=== PATIENT | male | born 2005 | race Caucasian/White ===

== ENCOUNTER 2023-03-19 17:20 | Emergency (ER) | payer OTHER ==
[~2023-03-19] VITALS: Ht 175.3 cm; Wt 68.0 kg
[2023-03-19 17:20] VITALS: BP_SYST 140; PULSE 110; RESP 19; TEMP 98.2; O2SAT 94
[2023-03-19] MEDS ORDERED: KETOROLAC TROMETHAMINE 30 MG VIAL IVP ONE (18:00)
[2023-03-19] MEDS ORDERED: ONDANSETRON HCL 4 MG/2 ML VIAL IVP ONE (18:00)
[2023-03-19] MEDS ORDERED: NACL 0.9% 1,000 ML IV ONE ×2 (18:00→19:15)
[2023-03-19 18:34] LABS: BASOPHILS % (AUTO) 0.1 % (0.0-2.0); EOSINOPHILS # (AUTO) 0.1 K/uL (0.0-0.4); EOSINOPHILS % (AUTO) 1.8 % (0.0-4.0); HEMOGLOBIN 16.3 g/dL (14.0-18.0); LYMPHOCYTES # (AUTO) 0.8 K/uL (1.0-5.5); LYMPHOCYTES % (AUTO) 9.6 % (20.5-51.5); MEAN CORPUSCULAR HEMOGLOBIN 30 pg (27-31); MEAN CORPUSCULAR HGB CONC 35 % (32-36); MEAN CORPUSCULAR VOLUME 87 fL (79.0-98.0); MONOCYTES # (AUTO) 0.7 K/uL (0.0-1.0); MONOCYTES % (AUTO) 8.7 % (1.7-9.3); NEUTROPHILS # (AUTO) 6.3 K/uL (1.8-7.7); NEUTROPHILS % (AUTO) 79.8 % (40.0-70.0); PLATELET COUNT (AUTO) 174 K/uL (130-430); RED BLOOD CELL COUNT(AUTO) 5.41 MIL/uL (4.2-6.2); RED CELL DISTRIBUTION WIDTH 12.8 % (9.0-15.0)
[2023-03-19 18:56] LABS: INFLUENZA TYPE A NEGATIVE (NEGATIVE); INFLUENZA TYPE B NEGATIVE (NEGATIVE)
[2023-03-19 19:00] LABS: ALBUMIN 3.4 g/dL (3.4-4.8); BILIRUBIN,DIRECT 0.2 mg/dL (0.0-0.3); CALCIUM 7.7 mg/dL (8.4-11.0); CREATININE 0.83 mg/dL (0.55-1.30); POTASSIUM 4.4 mmol/L (3.5-5.1); TOTAL BILIRUBIN 0.8 mg/dL (0.0-1.0); TOTAL PROTEIN, SERUM 6.5 g/dL (6.4-8.3)
[2023-03-19] MEDS ORDERED: ONDA-8 TL (20:10)
[2023-03-19] MEDS ORDERED: IBUP-1969 PO (20:10)
[2023-03-19 20:32] VITALS: BP_SYST 140; PULSE 110; RESP 19; TEMP 98.2; O2SAT 94
== END 2023-03-19 20:32 | disposition home or self-care (01) ==
LOC: SED 17:20
DX: A08.4 Viral intestinal infection, unspecified (principal); R11.10 Vomiting, unspecified; R19.7 Diarrhea, unspecified; M79.10 Myalgia, unspecified site; Z79.899 Other long term (current) drug therapy; Z20.822 Contact with and (suspected) exposure to COVID-19
CPT/HCPCS: 99284; 96374; 96361; 96375; 87426; 80076; 80048; 83690; 85025; 36415; 87804 ×2; J1885; J2405; J7030

== ENCOUNTER 2023-06-30 13:55 | Emergency (ER) | payer OTHER ==
[~2023-06-30] VITALS: Ht 172.7 cm; Wt 65.8 kg
[~2023-06-30 13:55] MED LIST: IBUP-1969 PO; ONDA-8 TL
[2023-06-30 14:04] VITALS: BP_SYST 126; PULSE 108; RESP 18; TEMP 98.3; O2SAT 98
[2023-06-30 14:14] VITALS: BP_SYST 126; PULSE 108; RESP 18; TEMP 98.3
[2023-06-30] MEDS: predniSONE 20 MG TABLET PO ONE (14:25)
[2023-06-30] MEDS: IPRATROPIUM/ALBUTEROL SULFATE 3 ML AMPUL.NEB (DUONEB) INH ONE (14:56)
[2023-06-30] MEDS ORDERED: AMOX-423 PO (15:17)
[2023-06-30] MEDS ORDERED: ALBMDI INH (15:17)
[2023-06-30] MEDS ORDERED: PRED20TA PO (15:17)
[2023-06-30 15:18] VITALS: O2SAT 94
== END 2023-06-30 15:36 | disposition home or self-care (01) ==
LOC: SED 13:55
DX: J18.9 Pneumonia, unspecified organism (principal); J45.909 Unspecified asthma, uncomplicated
CPT/HCPCS: 99284; 71045; 85379; 36415; 94640; J7512